=== PATIENT | female | born 1985 | race African-American/Black ===

== ENCOUNTER 2023-08-25 11:19 | Emergency (ER) | payer MEDICAID ==
[~2023-08-25] VITALS: Ht 167.6 cm; Wt 80.0 kg
[2023-08-25 11:29] VITALS: O2SAT 100
[2023-08-25] MEDS ORDERED: IBUPROFEN 600MG TABLET PO ONE (12:00)
[2023-08-25 13:34] LABS: CLARITY URINE CLEAR (CLEAR); COLOR URINE YELLOW (YELLOW)
[2023-08-25 13:35] LABS: GLUCOSE URINE NEGATIVE (NEGATIVE); KETONES URINE NEGATIVE (NEGATIVE); LEUKOCYTE ESTERASE URINE NEGATIVE (NEGATIVE); NITRITE URINE NEGATIVE (NEGATIVE); OCCULT BLOOD URINE 1+ (NEGATIVE); PH URINE 5.5 (4.5-8.0); PROTEIN URINE NEGATIVE (NEGATIVE); SPECIFIC GRAVITY URINE >=1.030 (1.005-1.030); UROBILINOGEN URINE 0.2 E.U./dL (0.2-1.0)
[2023-08-25 13:43] LABS: BACTERIA URINE 1+; SQUAMOUS EPITHELIAL CELL URINE 1+ /lpf (RARE/1+); WBC URINE 0-2 /hpf (0-2); YEAST URINE NONE SEEN
[2023-08-25] MEDS ORDERED: IBUP-2029 MT (14:08)
[2023-08-25 14:44] VITALS: BP 127/65; PULSE 63; RESP 16; TEMP 98.1
== END 2023-08-25 14:44 | disposition home or self-care (01) ==
LOC: ER 11:19
DX: M25.512 Pain in left shoulder (principal); M25.511 Pain in right shoulder; M54.2 Cervicalgia; Z98.890 Other specified postprocedural states
CPT/HCPCS: 71045; 72040; 81003; 81025; 99284